=== PATIENT | female | born 1935 | race Caucasian/White ===

== ENCOUNTER 2023-02-18 11:20 | Observation (INO) | payer MEDICARE ==
[~2023-02-18] VITALS: Ht 167.6 cm; Wt 85.6 kg
[~2023-02-18 11:20] MED LIST: NIFE30TA27 PO
[2023-02-18] MEDS ORDERED: nitroGLYCERIN 0.4mg SUBLingual tab SL PRN ×3 (11:30→16:45)
[2023-02-18] MEDS ORDERED: aspirin 81mg tab.chew PO ONE (11:30)
--- NOTE | 2023-02-18 11:33 | NUR ---
324MG ASA AND NITRO SL x3 GIVEN BY EMS.
[2023-02-18 11:56] LABS: BASOPHILS # (AUTO) 0.1 X10'3 (0-0.2); BASOPHILS % (AUTO) 0.7 % (0-1); EOSINOPHILS # (AUTO) 0.1 X10'3 (0-0.9); EOSINOPHILS % (AUTO) 1.8 % (0-6); HEMATOCRIT 44.1 % (35.0-45.0); HEMOGLOBIN 14.2 g/dl (12.0-16.0); LYMPHOCYTES # (AUTO) 2.2 X10'3 (1.1-4.8); LYMPHOCYTES % (AUTO) 31.5 % (21-51); MEAN CORPUSCULAR HEMOGLOBIN 27.8 PG (27.0-31.0); MEAN CORPUSCULAR HGB CONC 32.2 g/dL (33.0-36.5); MEAN CORPUSCULAR VOLUME 86.3 FL (78-98); MEAN PLATELET VOLUME 8.5 FL (7.4-10.4); MONOCYTES # (AUTO) 0.5 X10'3 (0-0.9); MONOCYTES % (AUTO) 7.3 % (2-12); NEUTROPHILS # (AUTO) 4.2 X10'3 (1.8-7.7); NEUTROPHILS % (AUTO) 58.7 % (42-75); PLATELET COUNT 227 X10'3 (140-440); RED BLOOD COUNT 5.11 X10'6 (4.20-5.60); WHITE BLOOD COUNT 7.1 X10'3 (4.5-11.0)
[2023-02-18] MEDS ORDERED: LEVO112T5 PO (11:59)
[2023-02-18 12:17] LABS: ALBUMIN 3.5 G/DL (3.4-5.0); ALBUMIN/GLOBULIN RATIO 0.9 (1.1-1.5); ALKALINE PHOSPHATASE 88 IU/L (46-116); ANION GAP 7 (8-16); ASPARTATE AMINO TRANSFERASE 17 U/L (10-37); BILIRUBIN,TOTAL 0.3 MG/DL (0.1-1.0); BLOOD UREA NITROGEN 20 MG/DL (7-18); BUN/CREATININE RATIO 28.2 (10.0-20.0); CALCIUM 8.9 MG/DL (8.5-10.1); CHLORIDE 107 MMOL/L (99-107); CREATININE 0.71 MG/DL (0.40-0.90); GLUCOSE 97 MG/DL (70-104); POTASSIUM 3.5 MMOL/L (3.5-5.1); SODIUM 143 MMOL/L (135-145); TOTAL CARBON DIOXIDE 28.6 MMOL/L (24-32); TOTAL PROTEIN 7.5 G/DL (6.4-8.2); eGFR 78 ML/MIN
[2023-02-18 12:19] LABS: D-DIMER 0.96 MG/L FEU (0-0.50)
[2023-02-18 12:26] LABS: ALANINE AMINOTRANSFERASE 6 U/L (12-78)
[2023-02-18] MEDS ORDERED: normal saline 1000ml 1,000 ML IV ONE (13:20)
[2023-02-18] MEDS ORDERED: iohexol 350MG/ML 100ml bottle IV ONE (13:26)
--- NOTE | 2023-02-18 13:27 | NUR ---
pt out to ct via [facility] with food selector
[2023-02-18] MEDS ORDERED: magnesium hydroxide 30ml (MOM) UD suspension PO PRN (15:05)
[2023-02-18] MEDS ORDERED: mag hydrox/Alum hydrox/simeth 30ml oral suspension PO PRN (15:05)
[2023-02-18] MEDS ORDERED: HYDROcodone/acetaminophen 5mg/325mg tablet PO PRN (15:05)
[2023-02-18] MEDS ORDERED: acetaminophen 325mg tablet PO PRN ×2 (15:05)
[2023-02-18] MEDS ORDERED: ondansetron/PF 4mg/2ml inj IV PRN (15:05)
[2023-02-18] MEDS ORDERED: morphine 2 MG/ML inj. syringe IV PRN ×2 (15:05)
[2023-02-18] MEDS ORDERED: aminophylline 250mg/10ml inj. IV PRN (16:45)
[2023-02-18] MEDS ORDERED: regadenoson 0.4mg/5ml syringe IV PRN (16:45)
[2023-02-18] MEDS ORDERED: metoprolol tartrate 1mg/ml inj IV PRN (16:45)
[2023-02-18] MEDS: docusate sod 100mg capsule PO SCH (19:58)
[2023-02-18 23:34] VITALS: BP 161/80
[2023-02-19 02:00] VITALS: BP 165/84
[2023-02-19 06:00] VITALS: BP 147/80
--- NOTE | 2023-02-19 06:58 | NUR ---
Patient in room ORTHO 4022A. I have received report from Rajendra ESTRADA and had the opportunity to ask questions and assume patient care. Pt sitting up high fowlers in bed talking to general maintenance technician. Pt on RA. No s/s of distress. Pt declines c/o pain at this time. BLL, call light within reach, frequently used items in reach, frequent rounsing, quarry boss socks on. Will continue to monitor.
[2023-02-19] MEDS: levoTHYROXINE 112mcg tablet PO SCH (07:00)
[2023-02-19 07:34] LABS: BASOPHILS % (AUTO) 0.6 % (0-1); EOSINOPHILS # (AUTO) 0.2 X10'3 (0-0.9); EOSINOPHILS % (AUTO) 2.7 % (0-6); HEMATOCRIT 43.2 % (35.0-45.0); HEMOGLOBIN 13.9 g/dl (12.0-16.0); LYMPHOCYTES # (AUTO) 2.2 X10'3 (1.1-4.8); LYMPHOCYTES % (AUTO) 37.5 % (21-51); MEAN CORPUSCULAR HEMOGLOBIN 27.9 PG (27.0-31.0); MEAN CORPUSCULAR HGB CONC 32.1 g/dL (33.0-36.5); MEAN CORPUSCULAR VOLUME 86.9 FL (78-98); MEAN PLATELET VOLUME 8.8 FL (7.4-10.4); MONOCYTES # (AUTO) 0.6 X10'3 (0-0.9); MONOCYTES % (AUTO) 9.5 % (2-12); NEUTROPHILS % (AUTO) 49.7 % (42-75); PLATELET COUNT 213 X10'3 (140-440); RED BLOOD COUNT 4.97 X10'6 (4.20-5.60); RED CELL DISTRIBUTION WIDTH 15.2 % (11.5-14.5)
[2023-02-19 07:50] LABS: ALBUMIN 3.1 G/DL (3.4-5.0); ANION GAP 8 (8-16); BLOOD UREA NITROGEN 22 MG/DL (7-18); BUN/CREATININE RATIO 33.3 (10.0-20.0); CALCIUM 8.9 MG/DL (8.5-10.1); CHLORIDE 109 MMOL/L (99-107); CREATININE 0.66 MG/DL (0.40-0.90); GLUCOSE 106 MG/DL (70-104); POTASSIUM 3.2 MMOL/L (3.5-5.1); SODIUM 144 MMOL/L (135-145); TOTAL CARBON DIOXIDE 27.3 MMOL/L (24-32); eGFR 85 ML/MIN
[2023-02-19] MEDS: docusate sod 100mg capsule PO SCH ×2 (08:00→19:14)
[2023-02-19] MEDS: aspirin 81mg, enteric-coated 1 TAB TABLET.DR PO SCH (08:00)
[2023-02-19] MEDS: NIFEdipine XL 30mg tablet PO SCH (10:13)
[2023-02-19 11:00] VITALS: BP 159/92
[2023-02-19 13:48] VITALS: BP 123/70
[2023-02-19 18:00] VITALS: BP 114/70
--- NOTE | 2023-02-19 18:19 | NUR ---
Problems reprioritized. Patient report given, questions answered & plan of care reviewed with Konstantin ESTRADA.
[2023-02-19] MEDS ORDERED: magnesium 2GM in 50ml NS 50 ML IV PRN (19:25)
[2023-02-19] MEDS ORDERED: potassium Cl 40MEQ/1/2NS 520ml 520 ML IV PRN (19:25)
[2023-02-19] MEDS ORDERED: magnesium Cl slow-release 64mg tablet PO PRN (19:25)
[2023-02-19] MEDS ORDERED: magnesium 4gm in 100ml NS 100 ML IV PRN (19:25)
[2023-02-19] MEDS ORDERED: potassium Cl 20 mEq SR tablet PO PRN (19:25)
[2023-02-19] MEDS: potassium Cl 20 mEq SR tablet PO PRN ×2 (19:27→23:59)
[2023-02-19] MEDS: K and/or MAG REPLACEMENT MC SCH (19:28)
[2023-02-19 21:20] VITALS: BP 151/88
[2023-02-20] VITALS (11 sets, daily range): BP systolic 132–161; BP diastolic 58–91
[2023-02-20] MEDS: potassium Cl 20 mEq SR tablet PO PRN (04:45)
--- NOTE | 2023-02-20 06:35 | NUR ---
Patient in room ORTHO 4022. I have received report from Konstantin and had the opportunity to ask questions and assume patient care.
[2023-02-20 06:39] LABS: BASOPHILS # (AUTO) 0.1 X10'3 (0-0.2); EOSINOPHILS # (AUTO) 0.2 X10'3 (0-0.9); EOSINOPHILS % (AUTO) 3.5 % (0-6); HEMATOCRIT 41.3 % (35.0-45.0); HEMOGLOBIN 13.4 g/dl (12.0-16.0); LYMPHOCYTES # (AUTO) 2.5 X10'3 (1.1-4.8); LYMPHOCYTES % (AUTO) 39.3 % (21-51); MEAN CORPUSCULAR HEMOGLOBIN 28.3 PG (27.0-31.0); MEAN CORPUSCULAR HGB CONC 32.5 g/dL (33.0-36.5); MEAN PLATELET VOLUME 8.7 FL (7.4-10.4); MONOCYTES # (AUTO) 0.5 X10'3 (0-0.9); MONOCYTES % (AUTO) 7.6 % (2-12); NEUTROPHILS # (AUTO) 3.1 X10'3 (1.8-7.7); NEUTROPHILS % (AUTO) 48.6 % (42-75); PLATELET COUNT 203 X10'3 (140-440); RED BLOOD COUNT 4.74 X10'6 (4.20-5.60); RED CELL DISTRIBUTION WIDTH 14.8 % (11.5-14.5); WHITE BLOOD COUNT 6.4 X10'3 (4.5-11.0)
[2023-02-20] MEDS: levoTHYROXINE 112mcg tablet PO SCH (07:00)
[2023-02-20 07:10] LABS: ANION GAP 8 (8-16); BLOOD UREA NITROGEN 21 MG/DL (7-18); BUN/CREATININE RATIO 32.3 (10.0-20.0); CHLORIDE 107 MMOL/L (99-107); CREATININE 0.65 MG/DL (0.40-0.90); GLUCOSE 107 MG/DL (70-104); POTASSIUM 3.8 MMOL/L (3.5-5.1); SODIUM 143 MMOL/L (135-145); TOTAL CARBON DIOXIDE 28.3 MMOL/L (24-32); eGFR 86 ML/MIN
[2023-02-20] MEDS: docusate sod 100mg capsule PO SCH (08:00)
[2023-02-20] MEDS: K and/or MAG REPLACEMENT MC SCH (08:00)
[2023-02-20] MEDS ORDERED: regadenoson 0.4mg/5ml syringe IV ONE (10:00)
[2023-02-20] MEDS: aspirin 81mg, enteric-coated 1 TAB TABLET.DR PO SCH (13:05)
[2023-02-20] MEDS: NIFEdipine XL 30mg tablet PO SCH (13:05)
[2023-02-20] MEDS ORDERED: LISI5TAB22 PO (16:41)
[2023-02-20] MEDS ORDERED: ASPI-1071 PO (16:41)
--- NOTE | 2023-02-20 18:10 | NUR ---
Reviewed discharge instructions with patient and grandson. Patient expressed a readiness to discharge home. She is alert, oriented and able to dress herself and gather her belongings. Patient finished her meal and was wheeled downstairs to be driven home by her grandson. The grandson was able to poultry picker her new Rx.
== END 2023-02-20 18:00 | disposition home or self-care (01) ==
LOC: ER 11:20 → ED HOLD 15:06 → ORTHO 4S 23:05
PROVIDERS: ADMIT Internal Medicine; ATTEND Internal Medicine
DX: R07.89 Other chest pain (principal); E03.9 Hypothyroidism, unspecified; I10 Essential (primary) hypertension; Z79.82 Long term (current) use of aspirin; Z79.899 Other long term (current) drug therapy; Z85.3 Personal history of malignant neoplasm of breast
CPT/HCPCS: 36415; 71045; 71275; 78452; 80048; 80053; 83735; 83880; 84484; 85025; 85379; 87081; 93005; 93017; 93306; 96360; 99285; A9500; G0378; J2785; J3490; J7030; Q9967

== ENCOUNTER 2024-12-30 14:26 | Emergency (ER) | payer MEDICARE ==
[~2024-12-30] VITALS: Ht 160 cm; Wt 78.0 kg
[~2024-12-30 14:26] MED LIST changes: +ATOR40TA71 PO; +CLON0.123 PO; +LEVO112T5 PO; -NIFE30TA27 PO
[2024-12-30 15:02] VITALS: TEMP 98
[2024-12-30 15:56] LABS: BASOPHILS # (AUTO) 0.1 X10'3 (0-0.2); BASOPHILS % (AUTO) 0.7 % (0-1); EOSINOPHILS # (AUTO) 0.3 X10'3 (0-0.9); EOSINOPHILS % (AUTO) 2.3 % (0-6); HEMATOCRIT 35.3 % (35.0-45.0); HEMOGLOBIN 11.2 g/dl (12.0-16.0); LYMPHOCYTES # (AUTO) 2.1 X10'3 (1.1-4.8); LYMPHOCYTES % (AUTO) 15.6 % (21-51); MEAN CORPUSCULAR HEMOGLOBIN 25.9 PG (27.0-31.0); MEAN CORPUSCULAR HGB CONC 31.7 g/dL (33.0-36.5); MEAN CORPUSCULAR VOLUME 81.8 FL (78-98); MEAN PLATELET VOLUME 8.2 FL (7.4-10.4); MONOCYTES # (AUTO) 0.9 X10'3 (0-0.9); MONOCYTES % (AUTO) 6.9 % (2-12); NEUTROPHILS # (AUTO) 10.1 X10'3 (1.8-7.7); NEUTROPHILS % (AUTO) 74.5 % (42-75); PLATELET COUNT 275 X10'3 (140-440); RED BLOOD COUNT 4.31 X10'6 (4.20-5.60); RED CELL DISTRIBUTION WIDTH 17.7 % (11.5-14.5); WHITE BLOOD COUNT 13.5 X10'3 (4.5-11.0)
[2024-12-30 16:13] LABS: ALANINE AMINOTRANSFERASE 9 U/L (12-78); ALBUMIN 3.1 G/DL (3.4-5.0); ALBUMIN/GLOBULIN RATIO 0.8 (1.1-1.5); ALKALINE PHOSPHATASE 135 IU/L (46-116); ANION GAP 5 (8-16); ASPARTATE AMINO TRANSFERASE 8 U/L (10-37); BILIRUBIN,TOTAL 0.6 MG/DL (0.1-1.0); BLOOD UREA NITROGEN 24 MG/DL (7-18); BUN/CREATININE RATIO 32.9 (10.0-20.0); CALCIUM 9.3 MG/DL (8.5-10.1); CHLORIDE 108 MMOL/L (99-107); CREATININE 0.73 MG/DL (0.40-0.90); GLUCOSE 90 MG/DL (70-104); POTASSIUM 3.8 MMOL/L (3.5-5.1); SODIUM 144 MMOL/L (135-145); TOTAL PROTEIN 7.1 G/DL (6.4-8.2); eCRCL 43 ML/MIN; eGFR 75 ML/MIN
[2024-12-30 16:24] LABS: LIPASE 25 U/L (16-77); PRO BRAIN NATRIURETIC PEPTIDE 548 PG/ML (0-450)
[2024-12-30 16:40] LABS: PROTHROMBIN TIME 10.6 SECONDS (9.0-12.0)
[2024-12-30 16:44] LABS: APTT 36 SECONDS (22-32)
[2024-12-30] MEDS ORDERED: HYDR-3965 PO (17:21)
[2024-12-30] MEDS: ondansetron/PF 4mg/2ml inj IV ONE (17:56)
[2024-12-30] MEDS: morphine 4 MG/ML inj SYRINge IV ONE (17:56)
[2024-12-30 17:59] VITALS: BP 159/83; PULSE 71; RESP 16; O2SAT 94
== END 2024-12-30 18:01 | disposition home or self-care (01) ==
LOC: ER 14:26
DX: I21.4 Non-ST elevation (NSTEMI) myocardial infarction (principal); D64.9 Anemia, unspecified; D72.829 Elevated white blood cell count, unspecified; J90 Pleural effusion, not elsewhere classified; R42 Dizziness and giddiness; I10 Essential (primary) hypertension; E07.9 Disorder of thyroid, unspecified; Z79.899 Other long term (current) drug therapy; Z72.89 Other problems related to lifestyle; Z86.73 Personal history of transient ischemic attack (TIA), and cerebral infarction without residual deficits; Z20.822 Contact with and (suspected) exposure to COVID-19
CPT/HCPCS: 36415; 70450; 71045; 74176; 80053; 83690; 83880; 84484; 85025; 85610; 85730; 87502; 87503; 87811; 93005; 96374; 96375; 99291; J2270; J2405